=== PATIENT | male | born 1975 | race Hispanic/Latino ===

== ENCOUNTER 2018-12-22 13:18 | Inpatient (IN) | payer BC ==
[2018-12-22] MEDS ORDERED: Sodium Chloride 0.9% 1,000 ML IV ONE ×2 (13:34→15:45)
[2018-12-22 13:35] VITALS: BMI 28.8
--- NOTE | 2018-12-22 13:40 | C.PDOC ---
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 Remembers falling. No chest pain, sob., visual changes or weakness. Speaking in complete sentences Time Seen by Provider: 12/22/18 13:25 Chief Complaint (Nursing): Syncope History Per: Patient History/Exam Limitations: no limitations Onset/Duration Of Symptoms: Hrs Current Symptoms Are (Timing): Still Present Number Of Syncopal Episodes: >3 Activity At Onset Of Symptoms: Standing Associated Symptoms Preceding Syncopal Episode: Lightheadedness Seizure Or Post-ictal Symptoms: None Possible Causative Factor(s): Diurectics Fall Associated With With Symptoms: Yes Severity: Severe Pain Scale Rating Of: 9 Recent travel outside of the [place]: No Additional History Per: Patient - Symptoms Of CVA Associated Symptoms: denies: Impaired Speech, Seizure Activity Recent Aspirin Use: No Current Coumadin Use?: No Recent Head Trauma: No Past Medical History Reviewed: Historical Data, Nursing Documentation, Vital Signs Vital Signs: Last Vital Signs Temp Pulse 37 L 12/22/18 13:30 Resp 20 12/22/18 13:30 BP 98/60 L 12/22/18 13:30 Pulse Ox 99 12/22/18 13:30 Primary Care Provider: Non [facility] Provider, - Medical History PMH: HTN Family History: States: No Known Family Hx - Social History Hx Alcohol Use: Yes Hx Substance Use: No - Immunization History Hx Tetanus Toxoid Vaccination: No Hx Influenza Vaccination: No Hx Pneumococcal Vaccination: No Review Of Systems Constitutional: Negative for: Fever, Chills Eyes: Negative for: Vision Change Cardiovascular: Positive for: Palpitations. Negative for: Chest Pain Respiratory: Negative for: Shortness of Breath Gastrointestinal: Negative for: Nausea, Vomiting Genitourinary: Negative for: Dysuria Musculoskeletal: Negative for: Back Pain Skin: Negative for: Rash Neurological: Negative for: Weakness Psych: Negative for: Anxiety Physical Exam - Physical Exam Appears: In Acute Distress Skin: Diaphoretic, Pale, Other (small abrassion1 cm, temporo occipital area) Head: Normacephalic Eye(s): bilateral: Normal Inspection Oral Mucosa: Moist Tongue: Normal Appearing Lips: Normal Appearing Throat: No Erythema Neck: Supple Chest: Symmetrical Cardiovascular: Rhythm Irregular Respiratory: No Rales, No Rhonchi, No Wheezing Gastrointestinal/Abdominal: Soft, No Tenderness Back: No CVA Tenderness Extremity: Normal ROM Extremity: Bilateral: Atraumatic Pulses: Left Dorsalis Pedis: Normal, Right Dorsalis Pedis: Normal Neurological/Psych: Oriented x3 Gait: Unsteady ED Course And Treatment - Laboratory Results Result Diagrams: 12/22/18 13:44 ECG: Interpreted By Me, Viewed By Me ECG Rhythm: Sinus Rhythm (59), 2nd Degree HB Mobitz II, R BBB, Nonspecific Changes O2 Sat by Pulse Oximetry: 99 Pulse Ox Interpretation: Normal Critical Care Time - Critical Care Note Total Time (in mins): 30 Documented critical care: time excludes all time spent performing seperately bi llable procedures. Disposition Counseled Patient/Family Regarding: Studies Performed, Diagnosis - Disposition Disposition Time: 13:38 Condition: GUARDED Forms: [facility] (Urdu) - Clinical Impression Clinical Impression: Syncope, Second degree heart block Physician Patient Turnover Patient Signed Over To: Renuka Gutierrez Handoff Comments: pending labs, re-eval and admission
[2018-12-22 13:51] LABS: BASO % 0.4 % (0.0-2.0); EOS # 0.1 K/uL (0.0-0.7); EOS % 0.5 % (0.0-4.0); HEMOGLOBIN 14.4 g/dL (12.0-18.0); LYMPH # 1.1 K/uL (1.0-4.3); LYMPH % 10.8 % (20.0-40.0); MEAN CELL VOLUME 85.1 fL (80.0-94.0); MEAN CORPUSCULAR HEMOGLOBIN 30.4 pg (27.0-31.0); MEAN CORPUSCULAR HGB CONC 35.7 g/dL (33.0-37.0); MEAN PLATELET VOLUME 8.2 fL (7.2-11.7); MONO # 0.6 K/uL (0.0-0.8); MONO % 6.1 % (0.0-10.0); NEUT # 8.5 K/uL (1.8-7.0); NEUT % 82.2 % (50.0-75.0); RBC 4.75 Mil/uL (4.40-5.90); RED CELL DISTRIBUTION WIDTH 13.1 % (11.5-14.5); WHITE BLOOD COUNT 10.4 K/uL (4.8-10.8)
[2018-12-22 13:59] LABS: INR 1.2; PROTHROMBIN TIME 13.5 SECONDS (9.7-12.2)
[2018-12-22 14:10] LABS: ALB/GLOB RATIO 1.6 (1.0-2.1); ALBUMIN 4.8 g/dL (3.5-5.0); ALT/SGPT 40 U/L (21-72); AST/SGOT 41 U/L (17-59); BLOOD UREA NITROGEN 19 mg/dL (9-20); CALCIUM 10.1 mg/dl (8.6-10.4); GFR NON-AFRICAN AMERICAN > 60
[2018-12-22 14:16] LABS: B-TYPE NATRIURETIC PEPTIDE 286 pg/mL (0-450)
[2018-12-22] MEDS ORDERED: Potassium Chloride 20 mEq ER Tab PO STA (14:28)
[2018-12-22] MEDS ORDERED: Atropine Sulfate 1 mg/ml Vial (1 ml) IVP ONE (14:32)
--- NOTE | 2018-12-22 15:04 | CP.PCM.CON ---
<Niels Antony - Last Filed: 12/22/18 17:38> History of Present Illness - History of Present Illness History of Present Illness: PGY-1 Critical Care Consult Note for Dr. Pritchard Reason for Consult: 3rd degree heart block Patient is a 43 year old male with pmhx of HTN and history of colon cancer who presented to the ED with acute onset lightheadedness, dizziness, syncope. 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 He woke up on the floor then and passed out a second time. He then woke up with bystanders surrounding him. Does not recall length of LOC. Patient continued to complain of dizziness in the ED and presented with abrasion to scalp. Per EM report, pt was received cold and clammy. ED noted patient to be in 3rd degree heart block. Vitals remained stable, patient was alert and oriented x 3. Atropine x 1 was given in the ED. EPS (Dr. Awan) was contacted, who is away for cases at [facility] until late this evening. Patient was transported to ICU where RIJ transcutaneous pacer was placed. After placing a 5 upper sorbian sheath, we were unable to find a cover sheath. Patient's heart stopped during this search process. Cardiac thump was performed by intensivitst and patient regained his sinus rhythm, which was conducting to the ventricle. When sheath was placed, patient was regowned and pacing wire was floated in. After 15 cm of insertion, balloon was inflated and advanced to 35 cm, upon which pacing capture and HR increased to 100. Patient's HR improved. CXR was obtained and wire was noted to be in place with no pneumothorax. EPS was notified again, made aware of intervention and patient updates. Stated he will come in the AM to evaluate patient for PPM placement. Patient resting comfortably, in no acute distress. Vitals stable. He denies any current headaches, dizziness, chest pain, palpitations, sob, cough, abdominal pain, n/v/d/c, dysuria, or changes in stool. 12 pt ROS reviewed and otherwise negative. PMHx: HTN, hx of colon cancer PSHx: "colon surgery" Allergies: NKDA Home Meds: reviewed Family Hx: unknown Social Hx: social drinker, denies tobacco or illicit drug use Review of Systems - Review of Systems All systems: reviewed and no additional remarkable complaints except Review of Systems: as per HPI Past Patient History - Past Social History Smoking Status: Never Smoked - CARDIAC Hx Hypertension: Yes - HEMATOLOGICAL/ONCOLOGICAL Hx Cancer: Yes (in past, colon ca) - PSYCHIATRIC Hx Substance Use: No - SURGICAL HISTORY Other/Comment: colon Meds Allergies/Adverse Reactions: Allergies Allergy/AdvReac Type Severity Reaction Status Date / Time No Known Allergies Allergy Verified 12/22/18 13:35 - Medications Medications: Current Medications Potassium Chloride (Potassium Chloride 20 Meq/100 Ml) 20 meq in 100 mls @ 50 mls/hr IVPB ONCE ONE Stop: 12/22/18 16:30 Last Admin: 12/22/18 14:53 Dose: 50 mls/hr Physical Exam - Constitutional Appears: Non-toxic, No Acute Distress - Head Exam Head Exam: ATRAUMATIC, NORMAL INSPECTION, NORMOCEPHALIC - Eye Exam Eye Exam: EOMI, Normal appearance, PERRL Pupil Exam: NORMAL ACCOMODATION - ENT Exam ENT Exam: Mucous Membranes Moist, Normal Exam - Neck Exam Neck exam: Positive for: Normal Inspection Additional comments: R IJ TCP inserted - Respiratory Exam Respiratory Exam: Clear to Auscultation Bilateral, NORMAL BREATHING PATTERN. absent: Accessory Muscle Use, Rales, Rhonchi, Wheezes, Respiratory Distress - Cardiovascular Exam Cardiovascular Exam: Irregular Rhythm, +S1, +S2 Additional comments: paced - GI/Abdominal Exam GI & Abdominal Exam: Normal Bowel Sounds, Soft. absent: Distended, Firm, Guarding, Rebound, Rigid, Tenderness - Extremities Exam Extremities exam: Positive for: normal capillary refill, normal inspection, pedal pulses present. Negative for: calf tenderness, pedal edema - Back Exam Back exam: NORMAL INSPECTION - Neurological Exam Neurological exam: Alert, Oriented x3 - Skin Skin Exam: Dry, Intact, Normal Color, Warm Results - Vital Signs Recent Vital Signs: Last Vital Signs Temp Pulse 47 L 12/22/18 14:51 Resp 18 12/22/18 14:51 BP 105/60 12/22/18 14:51 Pulse Ox 100 12/22/18 14:51 - Labs Result Diagrams: 12/22/18 13:44 12/22/18 13:44 Labs: Laboratory Results - last 24 hr 12/22/18 12/22/18 12/22/18 13:28 13:44 13:44 WBC 10.4 RBC 4.75 Hgb 14.4 Hct 40.4 MCV 85.1 MCH 30.4 MCHC 35.7 RDW 13.1 Plt Count 285 MPV 8.2 Neut % (Auto) 82.2 H Lymph % (Auto) 10.8 L [place] % (Auto) 6.1 Eos % (Auto) 0.5 Baso % (Auto) 0.4 Neut # (Auto) 8.5 H Lymph # (Auto) 1.1 C[place] # (Auto) 0.6 Eos # (Auto) 0.1 Baso # (Auto) 0.0 PT 13.5 H INR 1.2 APTT 32.0 Sodium Potassium Chloride Carbon Dioxide Anion Gap BUN Creatinine Est GFR ( Amer) Est GFR (Non-Af Amer) POC Glucose (mg/dL) 132 H Random Glucose Calcium Total Bilirubin AST ALT Alkaline Phosphatase Troponin I NT-Pro-B Natriuret Pep Total Protein Albumin Globulin Albumin/Globulin Ratio TSH 3rd Generation 12/22/18 13:44 WBC RBC Hgb Hct MCV MCH MCHC RDW Plt Count MPV Neut % (Auto) Lymph % (Auto) Cid[place] % (Auto) Eos % (Auto) Baso % (Auto) Neut # (Auto) Lymph # (Auto) C[place] # (Auto) Eos # (Auto) Baso # (Auto) PT INR APTT Sodium 141 Potassium 3.0 L Chloride 101 Carbon Dioxide 26 Anion Gap 18 BUN 19 Creatinine 1.3 Est GFR ( Amer) > 60 Est GFR (Non-Af Amer) > 60 POC Glucose (mg/dL) Random Glucose 132 H Calcium 10.1 Total Bilirubin 0.6 AST 41 ALT 40 Alkaline Phosphatase 72 Troponin I 0.0210 NT-Pro-B Natriuret Pep 286 Total Protein 7.9 Albumin 4.8 Globulin 3.0 Albumin/Globulin Ratio 1.6 TSH 3rd Generation 2.06 Assessment & Plan - Assessment and Plan (Free Text) Plan: 2nd degree heart block Hypotension -EKG: Sinus rhythm with 2nd degree AV block (Mobitz II) with ventricular escape complexes, RBBB, HR 53 bpm -R IJ TCP inserted -EPS (Dr. Costa) on case -NPO after MN for PPM tomorrow AM -on pressors, dopamine gtt -NS fluids @ 75 cc/hr Syncope, Fall CXR: Borderline cardiomegaly. Mild venous congestion, bilateral hilar prominence. CT head: no acute findings Hypokalemia -K 3.0 -K repleted, continue to monitor Case discussed with Dr. Macho Antony DO, PGY-1 <Nicolas Pritchard - Last Filed: 12/23/18 09:45> Meds - Medications Medications: Current Medications Dopamine HCl/Dextrose (Dopamine 400mg/250ml D5w) 400 mg in 250 mls @ 6.464 mls/hr IV .Q24H PRN; Protocol PRN Reason: TITRATE PER MD ORDER Last Titration: 12/22/18 18:00 Dose: 3 mcg/kg/min, 9.696 mls/hr Sodium Chloride (Sodium Chloride 0.9%) 1,000 mls @ 75 mls/hr IV .[id number] LESLEY Last Admin: 12/22/18 18:06 Dose: 75 mls/hr Vancomycin/Sodium Chloride (Vancomycin 1 Gm/Ns 200 Ml) 1 gm in 200 mls @ 133 mls/hr IVPB Q24H LESLEY; Protocol Stop: 12/27/18 20:01 Last Admin: 12/22/18 21:28 Dose: 133 mls/hr Gentamicin Sulfate/Sodium Chloride (Gentamicin 80mg/100ml Ns) 80 mg in 100 mls @ 200 mls/hr IVPB ONCE ONE; Protocol Stop: 12/23/18 10:29 Results - Vital Signs Recent Vital Signs: Last Vital Signs Temp 99 F 12/23/18 08:00 Pulse 88 12/23/18 09:02 Resp 19 12/23/18 09:02 BP 114/68 12/23/18 09:02 Pulse Ox 99 12/23/18 08:02 - Labs Result Diagrams: 12/23/18 06:31 12/23/18 04:00 Labs: Laboratory Results - last 24 hr 12/22/18 12/22/18 12/22/18 13:28 13:44 13:44 WBC 10.4 RBC 4.75 Hgb 14.4 Hct 40.4 MCV 85.1 MCH 30.4 MCHC 35.7 RDW 13.1 Plt Count 285 MPV 8.2 Neut % (Auto) 82.2 H Lymph % (Auto) 10.8 L [place] % (Auto) 6.1 Eos % (Auto) 0.5 Baso % (Auto) 0.4 Neut # (Auto) 8.5 H Lymph # (Auto) 1.1 C[place] # (Auto) 0.6 Eos # (Auto) 0.1 Baso # (Auto) 0.0 PT 13.5 H INR 1.2 APTT 32.0 D-Dimer, Quantitative Sodium Potassium Chloride Carbon Dioxide Anion Gap BUN Creatinine Est GFR ( Amer) Est GFR (Non-Af Amer) POC Glucose (mg/dL) 132 H Random Glucose Calcium Total Bilirubin AST ALT Alkaline Phosphatase Troponin I NT-Pro-B Natriuret Pep Total Protein Albumin Globulin Albumin/Globulin Ratio TSH 3rd Generation Urine Color Urine Clarity Urine pH Ur Specific Stark Urine Protein Urine Glucose (UA) Urine Ketones Urine Blood Urine Nitrate Urine Bilirubin Urine Urobilinogen Ur Leukocyte Esterase Urine WBC (Auto) Urine RBC (Auto) Hyaline Casts Urine Opiates Screen Urine Methadone Screen Ur Barbiturates Screen Ur Phencyclidine Scrn Ur Amphetamines Screen U Benzodiazepines Scrn U Oth Cocaine Metabols U Cannabinoids Screen Alcohol, Quantitative RPR 12/22/18 12/22/18 12/22/18 13:44 13:53 14:52 WBC RBC Hgb Hct MCV MCH MCHC RDW Plt Count MPV Neut % (Auto) Lymph % (Auto) [place] % (Auto) Eos % (Auto) Baso % (Auto) Neut # (Auto) Lymph # (Auto) [place] # (Auto) Eos # (Auto) Baso # (Auto) PT INR APTT D-Dimer, Quantitative 414 H Sodium 141 Potassium 3.0 L Chloride 101 Carbon Dioxide 26 Anion Gap 18 BUN 19 Creatinine 1.3 Est GFR ( Amer) > 60 Est GFR (Non-Af Amer) > 60 POC Glucose (mg/dL) Random Glucose 132 H Calcium 10.1 Total Bilirubin 0.6 AST 41 ALT 40 Alkaline Phosphatase 72 Troponin I 0.0210 NT-Pro-B Natriuret Pep 286 Total Protein 7.9 Albumin 4.8 Globulin 3.0 Albumin/Globulin Ratio 1.6 TSH 3rd Generation 2.06 Urine Color Urine Clarity Urine pH Ur Specific Stark Urine Protein Urine Glucose (UA) Urine Ketones Urine Blood Urine Nitrate Urine Bilirubin Urine Urobilinogen Ur Leukocyte Esterase Urine WBC (Auto) Urine RBC (Auto) Hyaline Casts Urine Opiates Screen Urine Methadone Screen Ur Barbiturates Screen Ur Phencyclidine Scrn Ur Amphetamines Screen U Benzodiazepines Scrn U Oth Cocaine Metabols U Cannabinoids Screen Alcohol, Quantitative RPR Nonreactive 12/22/18 12/22/18 12/23/18 19:17 19:17 04:00 WBC RBC Hgb Hct MCV MCH MCHC RDW Plt Count MPV Neut % (Auto) Lymph % (Auto) [place] % (Auto) Eos % (Auto) Baso % (Auto) Neut # (Auto) Lymph # (Auto) [place] # (Auto) Eos # (Auto) Baso # (Auto) PT INR APTT D-Dimer, Quantitative Sodium 141 Potassium 4.0 Chloride 104 Carbon Dioxide 27 Anion Gap 13 BUN 18 Creatinine 1.0 Est GFR ( Amer) > 60 Est GFR (Non-Af Amer) > 60 POC Glucose (mg/dL) Random Glucose 110 Calcium 8.8 Total Bilirubin AST ALT Alkaline Phosphatase Troponin I NT-Pro-B Natriuret Pep Total Protein Albumin Globulin Albumin/Globulin Ratio TSH 3rd Generation Urine Color Yellow Urine Clarity Clear Urine pH 6.0 Ur Specific Stark 1.012 Urine Protein Negative Urine Glucose (UA) Normal Urine Ketones Trace Urine Blood Negative Urine Nitrate Negative Urine Bilirubin Negative Urine Urobilinogen Normal Ur Leukocyte Esterase Neg Urine WBC (Auto) 1 Urine RBC (Auto) < 1 Hyaline Casts 3-5 H Urine Opiates Screen Negative Urine Methadone Screen Negative Ur Barbiturates Screen Negative Ur Phencyclidine Scrn Negative Ur Amphetamines Screen Negative U Benzodiazepines Scrn Negative U Oth Cocaine Metabols Negative U Cannabinoids Screen Negative Alcohol, Quantitative < 10 RPR 12/23/18 06:31 WBC 11.3 H RBC 4.82 Hgb 14.3 Hct 41.7 MCV 86.6 MCH 29.6 MCHC 34.2 RDW 13.1 Plt Count 244 MPV 8.2 Neut % (Auto) 83.9 H Lymph % (Auto) 9.4 L [place] % (Auto) 6.5 Eos % (Auto) 0.0 Baso % (Auto) 0.2 Neut # (Auto) 9.5 H Lymph # (Auto) 1.1 [place] # (Auto) 0.7 Eos # (Auto) 0.0 Baso # (Auto) 0.0 PT INR APTT D-Dimer, Quantitative Sodium Potassium Chloride Carbon Dioxide Anion Gap BUN Creatinine Est GFR ( Amer) Est GFR (Non-Af Amer) POC Glucose (mg/dL) Random Glucose Calcium Total Bilirubin AST ALT Alkaline Phosphatase Troponin I NT-Pro-B Natriuret Pep Total Protein Albumin Globulin Albumin/Globulin Ratio TSH 3rd Generation Urine Color Urine Clarity Urine pH Ur Specific Stark Urine Protein Urine Glucose (UA) Urine Ketones Urine Blood Urine Nitrate Urine Bilirubin Urine Urobilinogen Ur Leukocyte Esterase Urine WBC (Auto) Urine RBC (Auto) Hyaline Casts Urine Opiates Screen Urine Methadone Screen Ur Barbiturates Screen Ur Phencyclidine Scrn Ur Amphetamines Screen U Benzodiazepines Scrn U Oth Cocaine Metabols U Cannabinoids Screen Alcohol, Quantitative RPR Assessment & Plan - Assessment and Plan (Free Text) Plan: Patient seen and examined at bedside. Patient had 2 episodes of ventricular pause lasting more than 5 seconds (first in ER, 2nd during sheath searching) -EPS consulted (for PPM placement) -dopamin IV infusion by RN and atropine pushed by myself -TCPPM placed -Patient remains hemodynamically stable. cc time 65 minutes excluding any time spent on procedures - Date & Time Date: 12/22/18 Time: 19:00
[2018-12-22] MEDS ORDERED: DOPamine 400mg/250ml D5W 400 MG/250 ML BAG IV PRN (15:22)
--- NOTE | 2018-12-22 15:29 | RAD ---
HISTORY: chest pain COMPARISON: None available. TECHNIQUE: Chest, one view. FINDINGS: Examination limited by habitus. 2 left sided external defibrillator pads LUNGS: Mild venous congestion. Bilateral hilar prominence. No focal consolidation. Please note that chest x-ray has limited sensitivity for the detection of pulmonary masses. PLEURA: No significant pleural effusion identified. No definite pneumothorax . CARDIOVASCULAR: Borderline cardiomegaly. OSSEOUS STRUCTURES: No acute osseous abnormality identified. VISUALIZED UPPER ABDOMEN: Unremarkable. OTHER FINDINGS: None. IMPRESSION: Two left sided external defibrillator pads. Borderline cardiomegaly. Mild venous congestion. Bilateral hilar prominence.
--- NOTE | 2018-12-22 15:59 | CT ---
Date of service: 12/22/2018 PROCEDURE: CT HEAD WITHOUT CONTRAST. HISTORY: syncope COMPARISON: None available. TECHNIQUE: Axial computed tomography images were obtained through the head/brain without intravenous contrast. Radiation dose: Total exam DLP = 1192.46 mGy-cm. This CT exam was performed using one or more of the following dose reduction techniques: Automated exposure control, adjustment of the mA and/or kV according to patient size, and/or use of iterative reconstruction technique. FINDINGS: HEMORRHAGE: No intracranial hemorrhage. BRAIN: No mass effect or edema. No atrophy or chronic microvascular ischemic changes.Please note that MRI with diffusion imaging is more sensitive in the detection of acute ischemic event. VENTRICLES: No hydrocephalus. CALVARIUM: Unremarkable. PARANASAL SINUSES: Unremarkable as visualized. No significant inflammatory changes. MASTOID AIR CELLS: Unremarkable as visualized. No inflammatory changes. OTHER FINDINGS: None. IMPRESSION: No acute intracranial pathology identified.
--- NOTE | 2018-12-22 16:30 | CP.PCM.PCO ---
Physician Communication Note - Physician Communication Note Physician Communication Note: see above
--- NOTE | 2018-12-22 17:00 | RAD ---
HISTORY: s/p pacer cath COMPARISON: Chest x-ray performed 12/22/18 TECHNIQUE: Chest, one view. FINDINGS: Examination limited by habitus and hypoinflation. Right IJ approach catheter/wire extends from the level of the SVC crossing midline projecting at the level of the right ventricle; exact location uncertain in the absence of orthogonal view. 2 external defibrillator pads project over the chest/upper abdomen. There are multiple overlying wires and leads projecting over the chest, limiting evaluation of the underlying parenchyma. LUNGS: Mild venous congestion. PLEURA: No significant pleural effusion identified. No definite pneumothorax . CARDIOVASCULAR: Borderline cardiomegaly. Aortic ectasia. Atherosclerotic calcifications present. OSSEOUS STRUCTURES: Degenerative changes. VISUALIZED UPPER ABDOMEN: Unremarkable. OTHER FINDINGS: None. IMPRESSION: Right IJ approach catheter/wire extends from the level of the SVC crossing midline projecting at the level of the right ventricle; exact location uncertain in the absence of orthogonal view. Correlate clinically.
[2018-12-22] MEDS: Magnesium Sulfate 1 gm in D5W 1 GM/100 ML BAG IVPB SCH ×2 (17:10→17:40)
--- NOTE | 2018-12-22 17:34 | PCM.PROC ---
Procedures Attestation:: I certify that I have explained the specified Operation(s) or Procedure(s), risks, benefits and reasonable alternatives to the Patient and/or other person responsible. The opportunity was given to ask questions and all questions answered - Central Line Placement Right Internal Jugular Hemodialysis Access Aseptic technique was employed throughout the procedure: Full sterile barriers (mask, hair cover, sterile gown, sterile gloves), Full body sterile drape, Chloraprep Antiseptic: 30 second prep for IJ or SC sites, Chloraprep Antiseptic: 2 minute prep for Femoral CVP Time Out Performed: Yes Pt. Placed on Pulse Ox Monitor: Yes Central Line Prep: Chlorhexidine-Alcohol Combination Local Anesthesia Used: Lidocaine 1% Amount of Anesthesia Used (mls): 9 Ultrasound Used for Placement: Yes Central Line Lumen Inserted: single Central Line Length: 20 cm Post Procedure: Sutured in Place, Good Blood Return, All Ports Aspirated, Flushed, Capped, Sterile Dressing Applied Secured by: Suture Post procedure dressing: Gauze, Clear vapor permeable, Chlorhexidine disc (Biopatch) Post Procedure X-Ray: Yes Immediate Complications: None
[2018-12-22] MEDS: Sodium Chloride 0.9% 1,000 ML IV SCH (18:06)
[2018-12-22 19:38] LABS: BARBITURATES, UR NEGATIVE (NEGATIVE); BENZODIAZEPINES, UR NEGATIVE (NEGATIVE); OPIATES, UR NEGATIVE (NEGATIVE); PHENCYCLIDINE, UR NEGATIVE (NEGATIVE)
[2018-12-22 19:52] LABS: URINE BILIRUBIN NEGATIVE (NEGATIVE); URINE BLOOD NEGATIVE (NEGATIVE); URINE CLARITY Clear (Clear); URINE COLOR Yellow (YELLOW); URINE GLUCOSE (UA) NORMAL (Normal); URINE LEUKOCYTE ESTERASE NEG Leu/uL (Negative); URINE PROTEIN NEGATIVE (NEGATIVE); URINE UROBILINOGEN NORMAL mg/dL (0.2-1.0)
[2018-12-22] MEDS ORDERED: Vancomycin 1 gm/NS 200 ml 1 GM/200 ML BAG IVPB SCH (20:00)
--- NOTE | 2018-12-22 21:41 | CP.PCM.CON ---
History of Present Illness - History of Present Illness History of Present Illness: Reason for Consult: 3rd degree heart block Patient is a 43 year old male with pmhx of HTN and history of colon cancer who presented to the ED with acute onset lightheadedness, dizziness, syncope. 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 He woke up on the floor then and passed out a second time. He then woke up with bystanders surrounding him. Does not recall length of LOC. Patient continued to complain of dizziness in the ED and presented with abrasion to scalp. Per EM report, pt was received cold and clammy. ED noted patient to be in 3rd degree heart block. Vitals remained stable, patient was alert and oriented x 3. Atropine x 1 was given in the ED. EPS (Dr. Awan) was contacted, who is away for cases at [facility] until late this evening. Patient was transported to ICU where RIJ transcutaneous pacer was placed. After placing a 5 cameroonian sheath, we were unable to find a cover sheath. Patient's heart stopped during this search process. Cardiac thump was performed by intensivitst and patient regained his sinus rhythm, which was conducting to the ventricle. When sheath was placed, patient was regowned and pacing wire was floated in. After 15 cm of insertion, balloon was inflated and advanced to 35 cm, upon which pacing capture and HR increased to 100. Patient's HR improved. CXR was obtained and wire was noted to be in place with no pneumothorax. EPS was notified again, made aware of intervention and patient updates. Stated he will come in the AM to evaluate patient for PPM placement. Patient resting comfortably, in no acute distress. Vitals stable. He denies any current headaches, dizziness, chest pain, palpitations, sob, cough, abdominal pa in, n/v/d/c, dysuria, or changes in stool. 12 pt ROS reviewed and otherwise negative. PMHx: HTN, hx of colon cancer PSHx: "colon surgery" Allergies: NKDA Home Meds: reviewed Family Hx: unknown Social Hx: social drinker, denies tobacco or illicit drug use Review of Systems - Review of Systems All systems: reviewed and no additional remarkable complaints except Review of Systems: as per HPI Past Patient History - Past Social History Smoking Status: Never Smoked - CARDIAC Hx Hypertension: Yes - HEMATOLOGICAL/ONCOLOGICAL Hx Cancer: Yes (in past, colon ca) - PSYCHIATRIC Hx Substance Use: No - SURGICAL HISTORY Other/Comment: colon Meds Allergies/Adverse Reactions: Allergies Allergy/AdvReac Type Severity Reaction Status Date / Time No Known Allergies Allergy Verified 12/22/18 13:35 - Medications Medications: Current Medications Potassium Chloride (Potassium Chloride 20 Meq/100 Ml) 20 meq in 100 mls @ 50 mls/hr IVPB ONCE ONE Stop: 12/22/18 16:30 Last Admin: 12/22/18 14:53 Dose: 50 mls/hr Physical Exam - Constitutional Appears: Non-toxic, No Acute Distress - Head Exam Head Exam: ATRAUMATIC, NORMAL INSPECTION, NORMOCEPHALIC - Eye Exam Eye Exam: EOMI, Normal appearance, PERRL Pupil Exam: NORMAL ACCOMODATION - ENT Exam ENT Exam: Mucous Membranes Moist, Normal Exam - Neck Exam Neck exam: Positive for: Normal Inspection Additional comments: R IJ TCP inserted - Respiratory Exam Respiratory Exam: Clear to Auscultation Bilateral, NORMAL BREATHING PATTERN. absent: Accessory Muscle Use, Rales, Rhonchi, Wheezes, Respiratory Distress - Cardiovascular Exam Cardiovascular Exam: Irregular Rhythm, +S1, +S2 Additional comments: paced - GI/Abdominal Exam GI & Abdominal Exam: Normal Bowel Sounds, Soft. absent: Distended, Firm, Guarding, Rebound, Rigid, Tenderness - Extremities Exam Extremities exam: Positive for: normal capillary refill, normal inspection, pedal pulses present. Negative for: calf tenderness, pedal edema - Back Exam Back exam: NORMAL INSPECTION - Neurological Exam Neurological exam: Alert, Oriented x3 - Skin Skin Exam: Dry, Intact, Normal Color, Warm Results - Vital Signs Recent Vital Signs: Last Vital Signs Temp Pulse 47 L 12/22/18 14:51 Resp 18 12/22/18 14:51 BP 105/60 12/22/18 14:51 Pulse Ox 100 12/22/18 14:51 - Labs Result Diagrams: 12/22/18 13:44 12/22/18 13:44 Labs: Laboratory Results - last 24 hr 12/22/18 12/22/18 12/22/18 13:28 13:44 13:44 WBC 10.4 RBC 4.75 Hgb 14.4 Hct 40.4 MCV 85.1 MCH 30.4 MCHC 35.7 RDW 13.1 Plt Count 285 MPV 8.2 Neut % (Auto) 82.2 H Lymph % (Auto) 10.8 L Graham % (Auto) 6.1 Eos % (Auto) 0.5 Baso % (Auto) 0.4 Neut # (Auto) 8.5 H Lymph # (Auto) 1.1 Graham # (Auto) 0.6 Eos # (Auto) 0.1 Baso # (Auto) 0.0 PT 13.5 H INR 1.2 APTT 32.0 Sodium Potassium Chloride Carbon Dioxide Anion Gap BUN Creatinine Est GFR ( Amer) Est GFR (Non-Af Amer) POC Glucose (mg/dL) 132 H Random Glucose Calcium Total Bilirubin AST ALT Alkaline Phosphatase Troponin I NT-Pro-B Natriuret Pep Total Protein Albumin Globulin Albumin/Globulin Ratio TSH 3rd Generation 12/22/18 13:44 WBC RBC Hgb Hct MCV MCH MCHC RDW Plt Count MPV Neut % (Auto) Lymph % (Auto) Graham % (Auto) Eos % (Auto) Baso % (Auto) Neut # (Auto) Lymph # (Auto) Graham # (Auto) Eos # (Auto) Baso # (Auto) PT INR APTT Sodium 141 Potassium 3.0 L Chloride 101 Carbon Dioxide 26 Anion Gap 18 BUN 19 Creatinine 1.3 Est GFR ( Amer) > 60 Est GFR (Non-Af Amer) > 60 POC Glucose (mg/dL) Random Glucose 132 H Calcium 10.1 Total Bilirubin 0.6 AST 41 ALT 40 Alkaline Phosphatase 72 Troponin I 0.0210 NT-Pro-B Natriuret Pep 286 Total Protein 7.9 Albumin 4.8 Globulin 3.0 Albumin/Globulin Ratio 1.6 TSH 3rd Generation 2.06 Assessment & Plan - Assessment and Plan (Free Text) Plan: 2nd degree heart block Hypotension -EKG: Sinus rhythm with 2nd degree AV block (Mobitz II) with ventricular escape complexes, RBBB, HR 53 bpm -R IJ TCP inserted -EPS (Dr. Costa) on case -NPO after MN for PPM tomorrow AM -on pressors, dopamine gtt -NS fluids @ 75 cc/hr Syncope, Fall CXR: Borderline cardiomegaly. Mild venous congestion, bilateral hilar prominence. CT head: no acute findings Hypokalemia -K 3.0 -K repleted, continue to monitor Past Patient History - Past Social History Smoking Status: Never Smoked - CARDIAC Hx Hypertension: Yes - HEMATOLOGICAL/ONCOLOGICAL Hx Cancer: Yes (in past, colon ca) - PSYCHIATRIC Hx Substance Use: No - SURGICAL HISTORY Other/Comment: colon Meds Allergies/Adverse Reactions: Allergies Allergy/AdvReac Type Severity Reaction Status Date / Time No Known Allergies Allergy Verified 12/22/18 13:35 - Medications Medications: Current Medications Dopamine HCl/Dextrose (Dopamine 400mg/250ml D5w) 400 mg in 250 mls @ 6.464 mls/hr IV .Q24H PRN; Protocol PRN Reason: TITRATE PER MD ORDER Last Titration: 12/22/18 18:00 Dose: 3 mcg/kg/min, 9.696 mls/hr Sodium Chloride (Sodium Chloride 0.9%) 1,000 mls @ 75 mls/hr IV .[id number] [facility] Last Admin: 12/22/18 18:06 Dose: 75 mls/hr Vancomycin/Sodium Chloride (Vancomycin 1 Gm/Ns 200 Ml) 1 gm in 200 mls @ 133 mls/hr IVPB Q24H [facility]; Protocol Stop: 12/27/18 20:01 Results - Vital Signs Recent Vital Signs: Last Vital Signs Temp 97.2 F L 12/22/18 20:00 Pulse 88 12/22/18 21:02 Resp 13 12/22/18 21:02 BP 96/60 L 12/22/18 21:02 Pulse Ox 97 12/22/18 21:02 - Labs Result Diagrams: 12/22/18 13:44 12/22/18 13:44 Labs: Laboratory Results - last 24 hr 12/22/18 12/22/18 12/22/18 13:28 13:44 13:44 WBC 10.4 RBC 4.75 Hgb 14.4 Hct 40.4 MCV 85.1 MCH 30.4 MCHC 35.7 RDW 13.1 Plt Count 285 MPV 8.2 Neut % (Auto) 82.2 H Lymph % (Auto) 10.8 L Graham % (Auto) 6.1 Eos % (Auto) 0.5 Baso % (Auto) 0.4 Neut # (Auto) 8.5 H Lymph # (Auto) 1.1 Graham # (Auto) 0.6 Eos # (Auto) 0.1 Baso # (Auto) 0.0 PT 13.5 H INR 1.2 APTT 32.0 D-Dimer, Quantitative Sodium Potassium Chloride Carbon Dioxide Anion Gap BUN Creatinine Est GFR ( Amer) Est GFR (Non-Af Amer) POC Glucose (mg/dL) 132 H Random Glucose Calcium Total Bilirubin AST ALT Alkaline Phosphatase Troponin I NT-Pro-B Natriuret Pep Total Protein Albumin Globulin Albumin/Globulin Ratio TSH 3rd Generation Urine Color Urine Clarity Urine pH Ur Specific Stewart Urine Protein Urine Glucose (UA) Urine Ketones Urine Blood Urine Nitrate Urine Bilirubin Urine Urobilinogen Ur Leukocyte Esterase Urine WBC (Auto) Urine RBC (Auto) Hyaline Casts Urine Opiates Screen Urine Methadone Screen Ur Barbiturates Screen Ur Phencyclidine Scrn Ur Amphetamines Screen U Benzodiazepines Scrn U Oth Cocaine Metabols U Cannabinoids Screen RPR 12/22/18 12/22/18 12/22/18 13:44 13:53 14:52 WBC RBC Hgb Hct MCV MCH MCHC RDW Plt Count MPV Neut % (Auto) Lymph % (Auto) Graham % (Auto) Eos % (Auto) Baso % (Auto) Neut # (Auto) Lymph # (Auto) Graham # (Auto) Eos # (Auto) Baso # (Auto) PT INR APTT D-Dimer, Quantitative 414 H Sodium 141 Potassium 3.0 L Chloride 101 Carbon Dioxide 26 Anion Gap 18 BUN 19 Creatinine 1.3 Est GFR ( Amer) > 60 Est GFR (Non-Af Amer) > 60 POC Glucose (mg/dL) Random Glucose 132 H Calcium 10.1 Total Bilirubin 0.6 AST 41 ALT 40 Alkaline Phosphatase 72 Troponin I 0.0210 NT-Pro-B Natriuret Pep 286 Total Protein 7.9 Albumin 4.8 Globulin 3.0 Albumin/Globulin Ratio 1.6 TSH 3rd Generation 2.06 Urine Color Urine Clarity Urine pH Ur Specific Stewart Urine Protein Urine Glucose (UA) Urine Ketones Urine Blood Urine Nitrate Urine Bilirubin Urine Urobilinogen Ur Leukocyte Esterase Urine WBC (Auto) Urine RBC (Auto) Hyaline Casts Urine Opiates Screen Urine Methadone Screen Ur Barbiturates Screen Ur Phencyclidine Scrn Ur Amphetamines Screen U Benzodiazepines Scrn U Oth Cocaine Metabols U Cannabinoids Screen RPR Nonreactive 12/22/18 12/22/18 19:17 19:17 WBC RBC Hgb Hct MCV MCH MCHC RDW Plt Count MPV Neut % (Auto) Lymph % (Auto) Graham % (Auto) Eos % (Auto) Baso % (Auto) Neut # (Auto) Lymph # (Auto) Graham # (Auto) Eos # (Auto) Baso # (Auto) PT INR APTT D-Dimer, Quantitative Sodium Potassium Chloride Carbon Dioxide Anion Gap BUN Creatinine Est GFR ( Amer) Est GFR (Non-Af Amer) POC Glucose (mg/dL) Random Glucose Calcium Total Bilirubin AST ALT Alkaline Phosphatase Troponin I NT-Pro-B Natriuret Pep Total Protein Albumin Globulin Albumin/Globulin Ratio TSH 3rd Generation Urine Color Yellow Urine Clarity Clear Urine pH 6.0 Ur Specific Stewart 1.012 Urine Protein Negative Urine Glucose (UA) Normal Urine Ketones Trace Urine Blood Negative Urine Nitrate Negative Urine Bilirubin Negative Urine Urobilinogen Normal Ur Leukocyte Esterase Neg Urine WBC (Auto) 1 Urine RBC (Auto) < 1 Hyaline Casts 3-5 H Urine Opiates Screen Negative Urine Methadone Screen Negative Ur Barbiturates Screen Negative Ur Phencyclidine Scrn Negative Ur Amphetamines Screen Negative U Benzodiazepines Scrn Negative U Oth Cocaine Metabols Negative U Cannabinoids Screen Negative RPR
[2018-12-23 06:36] LABS: BASO % 0.2 % (0.0-2.0); HEMOGLOBIN 14.3 g/dL (12.0-18.0); LYMPH # 1.1 K/uL (1.0-4.3); LYMPH % 9.4 % (20.0-40.0); MEAN CELL VOLUME 86.6 fL (80.0-94.0); MEAN CORPUSCULAR HEMOGLOBIN 29.6 pg (27.0-31.0); MEAN CORPUSCULAR HGB CONC 34.2 g/dL (33.0-37.0); MEAN PLATELET VOLUME 8.2 fL (7.2-11.7); MONO # 0.7 K/uL (0.0-0.8); MONO % 6.5 % (0.0-10.0); NEUT # 9.5 K/uL (1.8-7.0); NEUT % 83.9 % (50.0-75.0); PLATELET COUNT 244 K/uL (130-400); RBC 4.82 Mil/uL (4.40-5.90); RED CELL DISTRIBUTION WIDTH 13.1 % (11.5-14.5); WHITE BLOOD COUNT 11.3 K/uL (4.8-10.8)
[2018-12-23 06:53] LABS: BLOOD UREA NITROGEN 18 mg/dL (9-20); CALCIUM 8.8 mg/dl (8.6-10.4); GFR NON-AFRICAN AMERICAN > 60
[2018-12-23] MEDS ORDERED: Vancomycin 1 gm/NS 200 ml 1 GM/200 ML BAG IVPB ONE (08:15)
[2018-12-23] MEDS ORDERED: Lidocaine 2% MPF (5 ml) Inj ONE (09:31)
[2018-12-23 09:49] LABS: BANDS 1 % (0-2); LYMPHOCYTE 9 % (20-40); MONOCYTE 7 % (0-10); NEUTROPHIL 81 % (50-75); REACTIVE LYMPHOCYTES 2 % (0-0); TOTAL CELLS COUNTED 100
[2018-12-23 09:50] LABS: ANISOCYTOSIS SLIGHT; LARGE PLATELETS PRESENT; PLATELET ESTIMATE NORMAL (NORMAL)
[2018-12-23] MEDS ORDERED: Gentamicin 80 mg in 0.9% NS 80 MG/100 ML BAG IVPB ONE (10:00)
--- NOTE | 2018-12-23 10:02 | CP.PCM.HP ---
History of Present Illness - History of Present Illness History of Present Illness: Medicine Note for Dr. Johnston's Service This is a 43 year old male with PMHx of hypertension and colon cancer who presented to the ED with acute onset lightheadedness, dizziness, and syncope. Patient was symptomatic during work, he works in a warehouse. Bystanders noted his LOC and syncope and EMS was called. Patient found to be in 3rd degree heart block, transcutaneous pacer placed in ICU. Plan for PPM 12/23/18. PMHx: HTN, hx of colon cancer PSHx: "colon surgery" Allergies: NKDA Home Meds: reviewed Family Hx: unknown Social Hx: social drinker, denies tobacco or illicit drug use Present on Admission - Present on Admission Any Indicators Present on Admission: No Past Patient History - Past Medical History & Family History Past Medical History?: Yes - Past Social History Smoking Status: Never Smoked - CARDIAC Hx Hypertension: Yes - HEMATOLOGICAL/ONCOLOGICAL Hx Cancer: Yes (in past, colon ca) - MUSCULOSKELETAL/RHEUMATOLOGICAL Hx Falls: Yes - PSYCHIATRIC Hx Substance Use: No - SURGICAL HISTORY Other/Comment: colon Meds Allergies/Adverse Reactions: Allergies Allergy/AdvReac Type Severity Reaction Status Date / Time No Known Allergies Allergy Verified 12/22/18 13:35 Physical Exam - Constitutional Appears: No Acute Distress - Head Exam Head Exam: NORMAL INSPECTION, NORMOCEPHALIC - Eye Exam Eye Exam: EOMI, Normal appearance Pupil Exam: NORMAL ACCOMODATION - ENT Exam ENT Exam: Mucous Membranes Moist - Respiratory Exam Respiratory Exam: Clear to Auscultation Bilateral, NORMAL BREATHING PATTERN - Cardiovascular Exam Cardiovascular Exam: REGULAR RHYTHM - GI/Abdominal Exam GI & Abdominal Exam: Normal Bowel Sounds, Soft. absent: Distended, Tenderness - Extremities Exam Extremities exam: Positive for: normal inspection - Neurological Exam Neurological exam: Alert, CN II-XII Intact, Oriented x3 - Psychiatric Exam Psychiatric exam: Normal Affect, Normal Mood - Skin Skin Exam: Dry, Intact, Normal Color, Warm Results - Vital Signs Recent Vital Signs: Last Vital Signs Temp 99 F 12/23/18 08:00 Pulse 88 12/23/18 09:02 Resp 19 12/23/18 09:02 BP 114/68 12/23/18 09:02 Pulse Ox 99 12/23/18 08:02 - Labs Result Diagrams: 12/23/18 06:31 12/23/18 04:00 Labs: Laboratory Results - last 24 hr 12/22/18 12/22/18 12/22/18 13:28 13:44 13:44 WBC 10.4 RBC 4.75 Hgb 14.4 Hct 40.4 MCV 85.1 MCH 30.4 MCHC 35.7 RDW 13.1 Plt Count 285 MPV 8.2 Neut % (Auto) 82.2 H Lymph % (Auto) 10.8 L Benzie % (Auto) 6.1 Eos % (Auto) 0.5 Baso % (Auto) 0.4 Neut # (Auto) 8.5 H Lymph # (Auto) 1.1 Benzie # (Auto) 0.6 Eos # (Auto) 0.1 Baso # (Auto) 0.0 Neutrophils % (Manual) Band Neutrophils % Lymphocytes % (Manual) Reactive Lymphs % Monocytes % (Manual) Platelet Estimate Large Platelets Anisocytosis (manual) PT 13.5 H INR 1.2 APTT 32.0 D-Dimer, Quantitative Sodium Potassium Chloride Carbon Dioxide Anion Gap BUN Creatinine Est GFR ( Amer) Est GFR (Non-Af Amer) POC Glucose (mg/dL) 132 H Random Glucose Calcium Total Bilirubin AST ALT Alkaline Phosphatase Troponin I NT-Pro-B Natriuret Pep Total Protein Albumin Globulin Albumin/Globulin Ratio TSH 3rd Generation Urine Color Urine Clarity Urine pH Ur Specific Lambert Urine Protein Urine Glucose (UA) Urine Ketones Urine Blood Urine Nitrate Urine Bilirubin Urine Urobilinogen Ur Leukocyte Esterase Urine WBC (Auto) Urine RBC (Auto) Hyaline Casts Urine Opiates Screen Urine Methadone Screen Ur Barbiturates Screen Ur Phencyclidine Scrn Ur Amphetamines Screen U Benzodiazepines Scrn U Oth Cocaine Metabols U Cannabinoids Screen Alcohol, Quantitative RPR 12/22/18 12/22/18 12/22/18 13:44 13:53 14:52 WBC RBC Hgb Hct MCV MCH MCHC RDW Plt Count MPV Neut % (Auto) Lymph % (Auto) Benzie % (Auto) Eos % (Auto) Baso % (Auto) Neut # (Auto) Lymph # (Auto) Benzie # (Auto) Eos # (Auto) Baso # (Auto) Neutrophils % (Manual) Band Neutrophils % Lymphocytes % (Manual) Reactive Lymphs % Monocytes % (Manual) Platelet Estimate Large Platelets Anisocytosis (manual) PT INR APTT D-Dimer, Quantitative 414 H Sodium 141 Potassium 3.0 L Chloride 101 Carbon Dioxide 26 Anion Gap 18 BUN 19 Creatinine 1.3 Est GFR ( Amer) > 60 Est GFR (Non-Af Amer) > 60 POC Glucose (mg/dL) Random Glucose 132 H Calcium 10.1 Total Bilirubin 0.6 AST 41 ALT 40 Alkaline Phosphatase 72 Troponin I 0.0210 NT-Pro-B Natriuret Pep 286 Total Protein 7.9 Albumin 4.8 Globulin 3.0 Albumin/Globulin Ratio 1.6 TSH 3rd Generation 2.06 Urine Color Urine Clarity Urine pH Ur Specific Lambert Urine Protein Urine Glucose (UA) Urine Ketones Urine Blood Urine Nitrate Urine Bilirubin Urine Urobilinogen Ur Leukocyte Esterase Urine WBC (Auto) Urine RBC (Auto) Hyaline Casts Urine Opiates Screen Urine Methadone Screen Ur Barbiturates Screen Ur Phencyclidine Scrn Ur Amphetamines Screen U Benzodiazepines Scrn U Oth Cocaine Metabols U Cannabinoids Screen Alcohol, Quantitative RPR Nonreactive 12/22/18 12/22/18 12/23/18 19:17 19:17 04:00 WBC RBC Hgb Hct MCV MCH MCHC RDW Plt Count MPV Neut % (Auto) Lymph % (Auto) Benzie % (Auto) Eos % (Auto) Baso % (Auto) Neut # (Auto) Lymph # (Auto) Benzie # (Auto) Eos # (Auto) Baso # (Auto) Neutrophils % (Manual) Band Neutrophils % Lymphocytes % (Manual) Reactive Lymphs % Monocytes % (Manual) Platelet Estimate Large Platelets Anisocytosis (manual) PT INR APTT D-Dimer, Quantitative Sodium 141 Potassium 4.0 Chloride 104 Carbon Dioxide 27 Anion Gap 13 BUN 18 Creatinine 1.0 Est GFR ( Amer) > 60 Est GFR (Non-Af Amer) > 60 POC Glucose (mg/dL) Random Glucose 110 Calcium 8.8 Total Bilirubin AST ALT Alkaline Phosphatase Troponin I NT-Pro-B Natriuret Pep Total Protein Albumin Globulin Albumin/Globulin Ratio TSH 3rd Generation Urine Color Yellow Urine Clarity Clear Urine pH 6.0 Ur Specific Lambert 1.012 Urine Protein Negative Urine Glucose (UA) Normal Urine Ketones Trace Urine Blood Negative Urine Nitrate Negative Urine Bilirubin Negative Urine Urobilinogen Normal Ur Leukocyte Esterase Neg Urine WBC (Auto) 1 Urine RBC (Auto) < 1 Hyaline Casts 3-5 H Urine Opiates Screen Negative Urine Methadone Screen Negative Ur Barbiturates Screen Negative Ur Phencyclidine Scrn Negative Ur Amphetamines Screen Negative U Benzodiazepines Scrn Negative U Oth Cocaine Metabols Negative U Cannabinoids Screen Negative Alcohol, Quantitative < 10 RPR 12/23/18 06:31 WBC 11.3 H RBC 4.82 Hgb 14.3 Hct 41.7 MCV 86.6 MCH 29.6 MCHC 34.2 RDW 13.1 Plt Count 244 MPV 8.2 Neut % (Auto) 83.9 H Lymph % (Auto) 9.4 L Benzie % (Auto) 6.5 Eos % (Auto) 0.0 Baso % (Auto) 0.2 Neut # (Auto) 9.5 H Lymph # (Auto) 1.1 Benzie # (Auto) 0.7 Eos # (Auto) 0.0 Baso # (Auto) 0.0 Neutrophils % (Manual) 81 H Band Neutrophils % 1 Lymphocytes % (Manual) 9 L Reactive Lymphs % 2 H Monocytes % (Manual) 7 Platelet Estimate Normal Large Platelets Present Anisocytosis (manual) Slight PT INR APTT D-Dimer, Quantitative Sodium Potassium Chloride Carbon Dioxide Anion Gap BUN Creatinine Est GFR ( Amer) Est GFR (Non-Af Amer) POC Glucose (mg/dL) Random Glucose Calcium Total Bilirubin AST ALT Alkaline Phosphatase Troponin I NT-Pro-B Natriuret Pep Total Protein Albumin Globulin Albumin/Globulin Ratio TSH 3rd Generation Urine Color Urine Clarity Urine pH Ur Specific Lambert Urine Protein Urine Glucose (UA) Urine Ketones Urine Blood Urine Nitrate Urine Bilirubin Urine Urobilinogen Ur Leukocyte Esterase Urine WBC (Auto) Urine RBC (Auto) Hyaline Casts Urine Opiates Screen Urine Methadone Screen Ur Barbiturates Screen Ur Phencyclidine Scrn Ur Amphetamines Screen U Benzodiazepines Scrn U Oth Cocaine Metabols U Cannabinoids Screen Alcohol, Quantitative RPR Assessment & Plan - Assessment and Plan (Free Text) Plan: 2nd degree heart block Hypotension -EPS (Dr. Costa) on case -EKG: Sinus rhythm with 2nd degree AV block (Mobitz II) with ventricular escape complexes, RBBB, HR 53 bpm -R IJ TCP inserted -on pressors, dopamine gtt -NS fluids @ 75 cc/hr -NPO after MN for PPM today 12/23/18 Syncope, Fall Imaging: - CT head: no acute findings - CXR: Borderline cardiomegaly. Mild venous congestion, bilateral hilar prominence. Hypokalemia - Replete as needed DW Dr. Johnston, Lisy Gale DO, PGY2
--- NOTE | 2018-12-23 11:19 | CP.PCM.PN ---
Subjective - Date & Time of Evaluation Date of Evaluation: 12/23/18 Time of Evaluation: 14:33 - Subjective Subjective: Progress Note for Dr. Johnston Patient seen and examined at bedside after PPM placement by Dr. Mckeon earlier today. He states he has a history of hypertension for which he takes Lisinopril and HCTZ. He states he has never had similar episodes of lightheadedness, dizziness or syncope. 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 Patient had a belligerent episode last night in the ICU. He states he has never syncopal episodes prior to recent event which brought him to the hospital. He denies fevers, chills, headache, lightheadedness, dizziness, chest pain, abdominal pain, nausea, vomiting, diarrhea, constipation, leg pain. Objective - Vital Signs/Intake and Output Vital Signs (last 24 hours): Temp Pulse Resp BP Pulse Ox 99 F 88 19 114/68 99 12/23/18 08:00 12/23/18 09:02 12/23/18 09:02 12/23/18 09:02 12/23/18 08:02 Intake and Output: 12/23/18 12/23/18 06:59 18:59 Intake Total 1016.4 304.1 Output Total 375 300 Balance 641.4 4.1 - Medications Medications: Current Medications Enoxaparin Sodium (Lovenox) 40 mg SC DAILY [facility] Sodium Chloride (Sodium Chloride 0.9%) 1,000 mls @ 75 mls/hr IV .[id number] [facility] Last Admin: 12/22/18 18:06 Dose: 75 mls/hr Pantoprazole Sodium (Protonix Ec Tab) 40 mg PO DAILY [facility] - Labs Labs: 12/23/18 06:31 12/23/18 04:00 PT 13.5 SECONDS (9.7-12.2) H 12/22/18 13:44 INR 1.2 12/22/18 13:44 APTT 32.0 SECONDS (21-34) 12/22/18 13:44 - Constitutional Appears: Well, Non-toxic, No Acute Distress - Head Exam Head Exam: ATRAUMATIC, NORMOCEPHALIC - Eye Exam Eye Exam: EOMI, PERRL - ENT Exam ENT Exam: Mucous Membranes Moist - Neck Exam Neck Exam: Full ROM. absent: Tenderness - Respiratory Exam Respiratory Exam: Clear to Ausculation Bilateral, Rales, NORMAL BREATHING PATTERN. absent: Rhonchi, Wheezes, Respiratory Distress, Stridor - Cardiovascular Exam Cardiovascular Exam: +S1, +S2 Additional comments: PPM in place Paced rhythm in 60s - GI/Abdominal Exam GI & Abdominal Exam: Soft, Normal Bowel Sounds. absent: Guarding, Rigid, Tenderness - Extremities Exam Extremities Exam: absent: Calf Tenderness, Pedal Edema - Neurological Exam Neurological Exam: Alert, Awake, Oriented x3 - Psychiatric Exam Psychiatric exam: Normal Affect, Normal Mood - Skin Skin Exam: Dry, Intact, Warm Assessment and Plan - Assessment and Plan (Free Text) Assessment: 43 year old male with history of hypertension admitted for syncopal episode, found to be in third degree heart block, had PPM placement earlier today. Plan: Third degree heart block, improving EKG SR [place] A waves present on initial EKG Patient initially had Right IJ pacer placement in ICU on admission Patient had 2 episodes of ventricular pause - in the ED and during Right IJ pacer placement. Patient was hypotensive and received Dopamine on the day of admission Dr. cMkeon placed PPM today Currently paced on monitor with HR in 60s. TSH 2.06 RPR nonreactive Lyme titer, iron, studies, ferritin pending Follow up ECHO report Syncope, Fall CT head: no acute findings. CXR: borderline cardiomegaly, mild venous congestion, bilateral hilar prominence. History of hypertension On Lisinopril and HCTZ at home Hold given low BP History of colon cancer Status post colon surgery Patient will need to follow up with GI and Heme/Onc on discharge. Prophylaxis Lovenox 40mg SC daily Protonix 40mg PO daily Heart healthy diet Case discussed with Dr. Preston Le, PGY1
[2018-12-23] MEDS ORDERED: Midazolam 2 MG/2 ML VIAL ONE ×2 (11:56→12:01)
[2018-12-23] MEDS ORDERED: Iohexol 350mgl/ml 50 ML ONE (12:14)
[2018-12-23] MEDS ORDERED: ceFAZolin IV 1 gm in Dextrose 1 GM/50 ML BAG IVPB ONE (13:04)
[2018-12-23] MEDS: Pantoprazole 40 mg EC Tab PO SCH (13:19)
[2018-12-23] MEDS: Sodium Chloride 0.9% 1,000 ML IV SCH (13:23)
--- NOTE | 2018-12-23 16:32 | PCM.OP ---
Operative Report - Operative Report Date of Surgery/Procedure: 12/23/18 Time of Surgery/Procedure: 11:30 Surgeon: Lexx Mckeon MD Transitions Rn Care Coordinator: None Anesthesia/Sedation: Moderate sedation Pre-Operative Diagnosis: AV block and syncope Post-Operative Diagnosis: AV Block and syncope Indication for Surgery: Syncope Operative Findings: PSA as reported Procedure/Operation Description: Dual chamber pacemaker insertion via axillary vein Estimated Blood Loss: 30 cc Blood Replaced: None Complications: None Discharge & Condition: Stable
--- NOTE | 2018-12-23 16:42 | CP.PCM.CON ---
History of Present Illness - History of Present Illness History of Present Illness: Dr. Martins has asked me to see this patient with compete heart block This is a 43 yo man with a CV significant for HTN. At baseline he is in good health and has no limitation with exertion. 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 He reports he was standing and speaking to coworkers when he suddenly lost consciousness. No associated palpitations and no modifying factors. He has no history of prior dizziness or syncope. He was brought to the ER where he was found to be in CHB with a sinus rate of 100 and a slow ventricular escape. He continued to have symptoms with transient asystole and a TVP was placed in the ICU. Labs notable for a normal TSH and a normal troponin. I have reviewed the transthoracic echocardiogram. It shows no significant valvular disease. There is significant LVH with setpal hyperrophy below the LVOT. There are no RWMA. There is a suggestions of an ASD. PMHx: HTN, colon cancer s/p partial colectomy Allergies: NKDA Family Hx: No premature CAD or sudden Social Hx: social drinker, denies tobacco or illicit drug use Review of Systems - Constitutional Constitutional: absent: Chills, Fever - EENT Eyes: absent: Change in Vision Ears: absent: Decreased Hearing Nose/Mouth/Throat: absent: Epistaxis - Cardiovascular Cardiovascular: absent: Chest Pain, Claudication, Dyspnea on Exertion, Edema, Irregular Heart Rhythm - Respiratory Respiratory: absent: Cough, Dyspnea - Gastrointestinal Gastrointestinal: absent: Abdominal Pain, Change in Bowel Habits - Genitourinary Genitourinary: absent: Change in Urinary Stream - Musculoskeletal Musculoskeletal: absent: Abnormal Gait, Arthralgias - Integumentary Integumentary: absent: Acne, Alopecia, Bleeding Lesions - Neurological Neurological: absent: Confusion, Dizziness - Psychiatric Psychiatric: absent: Panic Attacks, Paranoia - Endocrine Endocrine: absent: Excessive Sweating, Palpitations - Hematologic/Lymphatic Hematologic: absent: Easy Bruising Past Patient History - Past Medical History & Family History Past Medical History?: Yes - Past Social History Smoking Status: Never Smoked - CARDIAC Hx Hypertension: Yes - HEMATOLOGICAL/ONCOLOGICAL Hx Cancer: Yes (in past, colon ca) - MUSCULOSKELETAL/RHEUMATOLOGICAL Hx Falls: Yes - PSYCHIATRIC Hx Substance Use: No - SURGICAL HISTORY Other/Comment: colon Meds Allergies/Adverse Reactions: Allergies Allergy/AdvReac Type Severity Reaction Status Date / Time No Known Allergies Allergy Verified 12/22/18 13:35 - Medications Medications: Current Medications Enoxaparin Sodium (Lovenox) 40 mg SC DAILY [facility] Sodium Chloride (Sodium Chloride 0.9%) 1,000 mls @ 75 mls/hr IV .[id number] [facility] Last Admin: 12/23/18 13:23 Dose: 75 mls/hr Pantoprazole Sodium (Protonix Ec Tab) 40 mg PO DAILY [facility] Last Admin: 12/23/18 13:19 Dose: 40 mg Physical Exam - Constitutional Appears: Non-toxic, Toxic - Head Exam Additional comments: ecchymosis on forehead - Eye Exam Eye Exam: EOMI, Normal appearance, PERRL Pupil Exam: NORMAL ACCOMODATION, PERRL - ENT Exam ENT Exam: Mucous Membranes Moist - Neck Exam Additional comments: R IJ - Respiratory Exam Respiratory Exam: Clear to Auscultation Bilateral - Cardiovascular Exam Cardiovascular Exam: REGULAR RHYTHM. absent: Systolic Murmur Additional comments: distant heart sounds - GI/Abdominal Exam GI & Abdominal Exam: Normal Bowel Sounds, Soft - Extremities Exam Extremities exam: Positive for: normal inspection - Neurological Exam Neurological exam: Alert Results - Vital Signs Recent Vital Signs: Last Vital Signs Temp 98 F 12/23/18 13:15 Pulse 66 12/23/18 15:30 Resp 17 12/23/18 15:30 BP 123/77 12/23/18 14:43 Pulse Ox 97 12/23/18 15:30 - Labs Result Diagrams: 12/23/18 06:31 12/23/18 04:00 Labs: Laboratory Results - last 24 hr 12/22/18 12/22/18 12/22/18 13:53 19:17 19:17 WBC RBC Hgb Hct MCV MCH MCHC RDW Plt Count MPV Neut % (Auto) Lymph % (Auto) [place] % (Auto) Eos % (Auto) Baso % (Auto) Neut # (Auto) Lymph # (Auto) [place] # (Auto) Eos # (Auto) Baso # (Auto) Neutrophils % (Manual) Band Neutrophils % Lymphocytes % (Manual) Reactive Lymphs % Monocytes % (Manual) Platelet Estimate Large Platelets Anisocytosis (manual) Sodium Potassium Chloride Carbon Dioxide Anion Gap BUN Creatinine Est GFR ( Amer) Est GFR (Non-Af Amer) Random Glucose Calcium Urine Color Yellow Urine Clarity Clear Urine pH 6.0 Ur Specific [place] 1.012 Urine Protein Negative Urine Glucose (UA) Normal Urine Ketones Trace Urine Blood Negative Urine Nitrate Negative Urine Bilirubin Negative Urine Urobilinogen Normal Ur Leukocyte Esterase Neg Urine WBC (Auto) 1 Urine RBC (Auto) < 1 Hyaline Casts 3-5 H Urine Opiates Screen Negative Urine Methadone Screen Negative Ur Barbiturates Screen Negative Ur Phencyclidine Scrn Negative Ur Amphetamines Screen Negative U Benzodiazepines Scrn Negative U Oth Cocaine Metabols Negative U Cannabinoids Screen Negative Alcohol, Quantitative RPR Nonreactive 12/23/18 12/23/18 04:00 06:31 WBC 11.3 H RBC 4.82 Hgb 14.3 Hct 41.7 MCV 86.6 MCH 29.6 MCHC 34.2 RDW 13.1 Plt Count 244 MPV 8.2 Neut % (Auto) 83.9 H Lymph % (Auto) 9.4 L [place] % (Auto) 6.5 Eos % (Auto) 0.0 Baso % (Auto) 0.2 Neut # (Auto) 9.5 H Lymph # (Auto) 1.1 [place] # (Auto) 0.7 Eos # (Auto) 0.0 Baso # (Auto) 0.0 Neutrophils % (Manual) 81 H Band Neutrophils % 1 Lymphocytes % (Manual) 9 L Reactive Lymphs % 2 H Monocytes % (Manual) 7 Platelet Estimate Normal Large Platelets Present Anisocytosis (manual) Slight Sodium 141 Potassium 4.0 Chloride 104 Carbon Dioxide 27 Anion Gap 13 BUN 18 Creatinine 1.0 Est GFR ( Amer) > 60 Est GFR (Non-Af Amer) > 60 Random Glucose 110 Calcium 8.8 Urine Color Urine Clarity Urine pH Ur Specific [place] Urine Protein Urine Glucose (UA) Urine Ketones Urine Blood Urine Nitrate Urine Bilirubin Urine Urobilinogen Ur Leukocyte Esterase Urine WBC (Auto) Urine RBC (Auto) Hyaline Casts Urine Opiates Screen Urine Methadone Screen Ur Barbiturates Screen Ur Phencyclidine Scrn Ur Amphetamines Screen U Benzodiazepines Scrn U Oth Cocaine Metabols U Cannabinoids Screen Alcohol, Quantitative < 10 RPR Assessment & Plan - Assessment and Plan (Free Text) Assessment: 43 yo man with history of HTN who has developed symptomatic paroxysmal AV block. His troponin is normal and there are no RWMA arguing against ischemia. He denies any activity that would put him at increased risk for lyme. He is clearly symptomatic. CHB: schedule urgent PPM ASD: Echo suggests ASD . Will need furhter evaluation with IVY> LVH: moderate to severe. Total protein and albumin are normal. Suggest aggresive BP management. HTN: continue regimen.
[2018-12-23] MEDS: Enoxaparin 40 mg Syringe SC SCH (18:28)
--- NOTE | 2018-12-23 22:01 | OP ---
PROCEDURE DATE: 12/23/2018 PREOPERATIVE DIAGNOSIS: Complete heart block. POSTOPERATIVE DIAGNOSIS: Complete heart block. PROCEDURE: Pacemaker insertion. SURGEON: Lexx Mckeon MD COMPLICATIONS: None. ESTIMATED BLOOD LOSS: 30 mL. ANESTHESIA: Monitored care. MEDIA TECHNICIAN: None. SPECIMENS: None. REFERRING PROVIDER: Pj Martins MD CLINICAL HISTORY: This is a very pleasant 43-year-old male with a cardiovascular history significant for hypertension. He is at baseline, he is in good health with no significant limitations with exertion. 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 He was brought into the ER where despite atropine, he continued to have complete heart block with an underlying sinus rate of 100 and slow ventricular escape. He had further symptoms in addition to transient asystole. was placed in the ICU. His labs were notable for normal TSH and normal troponin. I have reviewed his transthoracic echocardiogram which shows no significant valvular disease. There is significant LVH with septal hypertrophy and there are no regional wall motion abnormalities. There is suggestion of an AST. He now presents for pacemaker insertion. DESCRIPTION OF PROCEDURE: The patient was brought to the cardiac electrophysiology laboratory, prepared in standard fashion. Continuous blood pressure, heart rate, electrocardiogram and pulse oximetry monitored throughout the procedure. The area over the left chest was anesthetized with local injection of 2% lidocaine. A #10 blade was used to make a 3-cm incision in the deltopectoral groove. Careful blunt dissection and electrocautery performed, we identified the pectoralis fascia and a pocket was made for the device. Percutaneous wire was advanced by left axillary vein through the right atrium. Introducer sheath was advanced over the first guidewire and active fixation pacing lead was then advanced under fluoroscopic guidance to the intraventricular septum where appropriate pacing and sensing thresholds were obtained. We then turned our attention to the atrial lead. Introducer sheath was advanced over the second guidewire and active fixation pacing lead was advanced under fluoroscopic guidance through the right atrial appendage, appropriate pacing and sensing thresholds were obtained. Individual silk ties were used to secure the introducer sheath to the underlying fascia. The pocket was irrigated liberally with antibiotic solution and secured to the underlying fascia with 0 silk stitches. Leads were connected to the pacemaker which was placed into the pocket and secured to the underlying fascia with 0 silk stitch. Deep subcutaneous tissue was closed with interrupted stitches of 2-0 Vicryl. Superficial subcutaneous tissue was closed with interrupted stitches of 3-0 Vicryl. Subcuticular tissue was closed with a running stitch of 4-0 Monocryl. Dermabond was applied to incision as well as a pressure dressing. The patient tolerated the procedure well. There were no complications. He was transferred to home in stable condition. FINDINGS: 1. The device is [employer], serial #[id number]. 2. The atrial lead is a 5076 52 cm serial #[id number]. 3. The ventricular lead is a 5076, it is 58 cm, serial #[id number]. 4. Pacing and sensing analyzer measurement: Sensed atrial electrogram is 2.8 mV, impedance 542 ohms. Capillary threshold is 0.7 v. Sensed ventricular electrogram is 24.8 mV. Impedance is 988 ohms. Capillary threshold is 0.8 v. CONCLUSION: Successful dual-chamber pacemaker via axillary vein access. PLAN: Routine followup. Lexx Mckeon MD cc: Pj Martins MD
[2018-12-24 06:12] LABS: BASO % 0.5 % (0.0-2.0); EOS % 0.3 % (0.0-4.0); HEMOGLOBIN 13.7 g/dL (12.0-18.0); LYMPH # 1.5 K/uL (1.0-4.3); MEAN CELL VOLUME 86.1 fL (80.0-94.0); MEAN CORPUSCULAR HEMOGLOBIN 30.5 pg (27.0-31.0); MEAN CORPUSCULAR HGB CONC 35.4 g/dL (33.0-37.0); MEAN PLATELET VOLUME 8.2 fL (7.2-11.7); MONO # 0.7 K/uL (0.0-0.8); MONO % 7.5 % (0.0-10.0); NEUT # 6.9 K/uL (1.8-7.0); NEUT % 75.7 % (50.0-75.0); RBC 4.49 Mil/uL (4.40-5.90); RED CELL DISTRIBUTION WIDTH 13.5 % (11.5-14.5); WHITE BLOOD COUNT 9.1 K/uL (4.8-10.8)
[2018-12-24 06:14] LABS: IRON 27 ug/dL (49-181)
[2018-12-24 06:18] LABS: ALB/GLOB RATIO 1.5 (1.0-2.1); ALBUMIN 4.3 g/dL (3.5-5.0); ALT/SGPT 26 U/L (21-72); AST/SGOT 28 U/L (17-59); BLOOD UREA NITROGEN 20 mg/dL (9-20); CALCIUM 9.2 mg/dl (8.6-10.4); GFR NON-AFRICAN AMERICAN > 60
[2018-12-24 06:23] LABS: % IRON SATURATION 9 (20-55); TOTAL IRON BINDING CAPACITY 307 ug/dL (250-450)
--- NOTE | 2018-12-24 08:03 | CP.PCM.PN ---
Subjective - Date & Time of Evaluation Date of Evaluation: 12/24/18 Time of Evaluation: 08:03 - Subjective Subjective: Progress note for Dr. Johnston. Patient seen and examined at bedside. Patient states he feels well. Denies dizziness, lightheadedness, generalized weakness, SOB, chest pain, nausea, vomiting, abdominal pain and extremity pain. Objective - Vital Signs/Intake and Output Vital Signs (last 24 hours): Temp Pulse Resp BP Pulse Ox 98.1 F 72 19 116/69 96 12/24/18 04:00 12/24/18 04:00 12/24/18 04:00 12/24/18 04:00 12/24/18 04:00 Intake and Output: 12/24/18 12/24/18 06:59 18:59 Intake Total 540 Output Total 400 Balance 140 - Medications Medications: Current Medications Enoxaparin Sodium (Lovenox) 40 mg SC DAILY [facility] Last Admin: 12/23/18 18:28 Dose: 40 mg Pantoprazole Sodium (Protonix Ec Tab) 40 mg PO DAILY [facility] Last Admin: 12/23/18 13:19 Dose: 40 mg - Labs Labs: 12/24/18 05:56 12/24/18 05:56 PT 13.5 SECONDS (9.7-12.2) H 12/22/18 13:44 INR 1.2 12/22/18 13:44 APTT 32.0 SECONDS (21-34) 12/22/18 13:44 - Constitutional Appears: Non-toxic, No Acute Distress - Head Exam Head Exam: ATRAUMATIC, NORMOCEPHALIC - Eye Exam Eye Exam: EOMI, Normal appearance, PERRL - ENT Exam ENT Exam: Mucous Membranes Moist - Neck Exam Neck Exam: Full ROM, Normal Inspection - Respiratory Exam Respiratory Exam: Clear to Ausculation Bilateral, NORMAL BREATHING PATTERN. absent: Rales, Rhonchi, Wheezes - Cardiovascular Exam Cardiovascular Exam: REGULAR RHYTHM, +S1, +S2 Additional comments: PPM left chest. Dressing c/d/i - GI/Abdominal Exam GI & Abdominal Exam: Soft. absent: Distended, Firm, Guarding, Rigid, Tenderness, Rebound - Extremities Exam Extremities Exam: Full ROM, Normal Capillary Refill, Normal Inspection. absent: Pedal Edema, Tenderness - Neurological Exam Neurological Exam: Alert, Awake, CN II-XII Intact, Oriented x3 Neuro motor strength exam: Left Upper Extremity: 5, Right Upper Extremity: 5, Left Lower Extremity: 5, Right Lower Extremity: 5 - Psychiatric Exam Psychiatric exam: Normal Affect, Normal Mood - Skin Skin Exam: Dry, Intact, Normal Color, Warm Assessment and Plan - Assessment and Plan (Free Text) Plan: 43 year old male with history of hypertension admitted for syncopal episode, found to be in third degree heart block, had PPM placement earlier today. Plan: Third degree heart block, improving EKG SR [place] A waves present on initial EKG Patient initially had Right IJ pacer placement in ICU on admission Patient had 2 episodes of ventricular pause - in the ED and during Right IJ pacer placement. Patient was hypotensive and received Dopamine on the day of admission Dr. Mckeon placed PPM today Currently paced on monitor with HR in 60s. TSH 2.06 RPR nonreactive Lyme titer, iron, studies, ferritin pending Follow up ECHO report Syncope, Fall CT head: no acute findings. CXR: borderline cardiomegaly, mild venous congestion, bilateral hilar prominence. History of hypertension On Lisinopril and HCTZ at home Hold given low BP History of colon cancer Status post colon surgery Patient will need to follow up with GI and Heme/Onc on discharge. Prophylaxis Lovenox 40mg SC daily Protonix 40mg PO daily Heart healthy diet Dispo: IVY as recomended by Dr. Mckeon. Case discussed with Dr. Johnston
[2018-12-24] MEDS ORDERED: Potassium Chloride 20 mEq ER Tab PO ONE (08:04)
[2018-12-24] MEDS: Enoxaparin 40 mg Syringe SC SCH (09:35)
[2018-12-24] MEDS: Pantoprazole 40 mg EC Tab PO SCH (09:35)
[2018-12-24 10:22] VITALS: PULSE 61
--- NOTE | 2018-12-24 12:43 | CP.PCM.DIS ---
Provider - Provider Date of Admission: 12/22/18 14:06 Attending physician: Suhas Johnston Jr, MD Consults: 12/22/18 14:09 Cardiology Consult Stat Comment: Consulting Provider: Lexx Mckeon Consulting Physician: Lexx Mckeon Reason for Consult: 3rd degree heart block 12/23/18 00:08 Nursing Referral for Palliative Care Routine Comment: Physician Instructions: Reason For Exam: Score of 5 Time Spent in preparation of Discharge (in minutes): 35 Diagnosis - Discharge Diagnosis (1) Heart block AV third degree Status: Acute Hospital Course - Lab Results Lab Results: Micro Results 12/22/18 16:36 Nose MRSA Culture (Admit) - Final MRSA NOT DETECTED Most Recent Lab Values WBC 9.1 K/uL (4.8-10.8) 12/24/18 05:56 RBC 4.49 Mil/uL (4.40-5.90) 12/24/18 05:56 Hgb 13.7 g/dL (12.0-18.0) 12/24/18 05:56 Hct 38.7 % (35.0-51.0) 12/24/18 05:56 MCV 86.1 fL (80.0-94.0) 12/24/18 05:56 MCH 30.5 pg (27.0-31.0) 12/24/18 05:56 MCHC 35.4 g/dL (33.0-37.0) 12/24/18 05:56 RDW 13.5 % (11.5-14.5) 12/24/18 05:56 Plt Count 191 K/uL (130-400) 12/24/18 05:56 MPV 8.2 fL (7.2-11.7) 12/24/18 05:56 Neut % (Auto) 75.7 % (50.0-75.0) H 12/24/18 05:56 Lymph % (Auto) 16.0 % (20.0-40.0) L 12/24/18 05:56 [place] % (Auto) 7.5 % (0.0-10.0) 12/24/18 05:56 Eos % (Auto) 0.3 % (0.0-4.0) 12/24/18 05:56 Baso % (Auto) 0.5 % (0.0-2.0) 12/24/18 05:56 Neut # (Auto) 6.9 K/uL (1.8-7.0) 12/24/18 05:56 Lymph # (Auto) 1.5 K/uL (1.0-4.3) 12/24/18 05:56 [place] # (Auto) 0.7 K/uL (0.0-0.8) 12/24/18 05:56 Eos # (Auto) 0.0 K/uL (0.0-0.7) 12/24/18 05:56 Baso # (Auto) 0.0 K/uL (0.0-0.2) 12/24/18 05:56 Neutrophils % (Manual) 81 % (50-75) H 12/23/18 06:31 Band Neutrophils % 1 % (0-2) 12/23/18 06:31 Lymphocytes % (Manual) 9 % (20-40) L 12/23/18 06:31 Reactive Lymphs % 2 % (0-0) H 12/23/18 06:31 Monocytes % (Manual) 7 % (0-10) 12/23/18 06:31 Platelet Estimate Normal (NORMAL) 12/23/18 06:31 Large Platelets Present 12/23/18 06:31 Anisocytosis (manual) Slight 12/23/18 06:31 PT 13.5 SECONDS (9.7-12.2) H 12/22/18 13:44 INR 1.2 12/22/18 13:44 APTT 32.0 SECONDS (21-34) 12/22/18 13:44 D-Dimer, Quantitative 414 ng/mlDDU (0-243) H 12/22/18 14:52 Sodium 138 mmol/L (132-148) 12/24/18 05:56 Potassium 3.3 mmol/L (3.6-5.2) L 12/24/18 05:56 Chloride 103 mmol/L (98-107) 12/24/18 05:56 Carbon Dioxide 27 mmol/L (22-30) 12/24/18 05:56 Anion Gap 12 (10-20) 12/24/18 05:56 BUN 20 mg/dL (9-20) 12/24/18 05:56 Creatinine 1.0 mg/dL (0.8-1.5) 12/24/18 05:56 Est GFR ( Amer) > 60 12/24/18 05:56 Est GFR (Non-Af Amer) > 60 12/24/18 05:56 POC Glucose (mg/dL) 132 mg/dL (65-110) H 12/22/18 13:28 Random Glucose 88 mg/dL (75-110) 12/24/18 05:56 Calcium 9.2 mg/dl (8.6-10.4) 12/24/18 05:56 Phosphorus 1.9 mg/dL (2.5-4.5) L 12/24/18 05:56 Magnesium 2.2 mg/dL (1.6-2.3) 12/24/18 05:56 Iron 27 ug/dL (49-181) L 12/24/18 05:56 TIBC 307 ug/dL (250-450) 12/24/18 05:56 % Saturation 9 (20-55) L 12/24/18 05:56 Ferritin 297.0 ng/mL 12/24/18 05:56 Total Bilirubin 0.8 mg/dL (0.2-1.3) 12/24/18 05:56 AST 28 U/L (17-59) 12/24/18 05:56 ALT 26 U/L (21-72) 12/24/18 05:56 Alkaline Phosphatase 57 U/L (38-126) 12/24/18 05:56 Troponin I 0.0210 ng/mL (0.00-0.120) 12/22/18 13:44 NT-Pro-B Natriuret Pep 286 pg/mL (0-450) 12/22/18 13:44 Total Protein 7.2 g/dL (6.3-8.3) 12/24/18 05:56 Albumin 4.3 g/dL (3.5-5.0) 12/24/18 05:56 Globulin 2.9 gm/dL (2.2-3.9) 12/24/18 05:56 Albumin/Globulin Ratio 1.5 (1.0-2.1) 12/24/18 05:56 TSH 3rd Generation 2.06 mIU/L (0.46-4.68) 12/22/18 13:44 Urine Color Yellow (YELLOW) 12/22/18 19:17 Urine Clarity Clear (Clear) 12/22/18 19:17 Urine pH 6.0 (5.0-8.0) 12/22/18 19:17 Ur Specific [place] 1.012 (1.003-1.030) 12/22/18 19:17 Urine Protein Negative mg/dL (NEGATIVE) 12/22/18 19:17 Urine Glucose (UA) Normal mg/dL (Normal) 12/22/18 19:17 Urine Ketones Trace mg/dL (NEGATIVE) 12/22/18 19:17 Urine Blood Negative (NEGATIVE) 12/22/18 19:17 Urine Nitrate Negative (NEGATIVE) 12/22/18 19:17 Urine Bilirubin Negative (NEGATIVE) 12/22/18 19:17 Urine Urobilinogen Normal mg/dL (0.2-1.0) 12/22/18 19:17 Ur Leukocyte Esterase Neg [place]/uL (Negative) 12/22/18 19:17 Urine WBC (Auto) 1 /hpf (0-5) 12/22/18 19:17 Urine RBC (Auto) < 1 /hpf (0-3) 12/22/18 19:17 Hyaline Casts 3-5 /lpf (0-2) H 12/22/18 19:17 Urine Opiates Screen Negative (NEGATIVE) 12/22/18 19:17 Urine Methadone Screen Negative (NEGATIVE) 12/22/18 19:17 Ur Barbiturates Screen Negative (NEGATIVE) 12/22/18 19:17 Ur Phencyclidine Scrn Negative (NEGATIVE) 12/22/18 19:17 Ur Amphetamines Screen Negative (NEGATIVE) 12/22/18 19:17 U Benzodiazepines Scrn Negative (NEGATIVE) 12/22/18 19:17 U Oth Cocaine Metabols Negative (NEGATIVE) 12/22/18 19:17 U Cannabinoids Screen Negative (NEGATIVE) 12/22/18 19:17 Alcohol, Quantitative < 10 mg/dl (0-10) 12/23/18 04:00 RPR Nonreactive (NONREACTIVE) 12/22/18 13:53 - Hospital Course Hospital Course: On admission: This is a 43 year old male with PMHx of hypertension and colon cancer who presented to the ED with acute onset lightheadedness, dizziness, and syncope. Patient was symptomatic during work, he works in a warehouse. Bystanders noted his LOC and syncope and EMS was called. Patient found to be in 3rd degree heart block, transcutaneous pacer placed in ICU. Plan for PPM 12/23/18. Hospital Course: 43 year old male with history of hypertension admitted for syncopal episode, found to be in third degree heart block, had PPM placement earlier today. Plan: Third degree heart block, improving EKG SR [place] A waves present on initial EKG Patient initially had Right IJ pacer placement in ICU on admission Patient had 2 episodes of ventricular pause - in the ED and during Right IJ pacer placement. Patient was hypotensive and received Dopamine on the day of admission Dr. Mckeon placed PPM today Currently paced on monitor with HR in 60s. TSH 2.06 RPR nonreactive Lyme titer, iron, studies, ferritin pending Follow up ECHO report Syncope, Fall CT head: no acute findings. CXR: borderline cardiomegaly, mild venous congestion, bilateral hilar prominence. History of hypertension On Lisinopril and HCTZ at home Hold given low BP History of colon cancer Status post colon surgery Patient will need to follow up with GI and Heme/Onc on discharge. Prophylaxis Lovenox 40mg SC daily Protonix 40mg PO daily Heart healthy diet Dispo: IVY as recomended by Dr. Mckeon, as TTE suggested ASD. Patient signed out against medical advice. Risks of leaving without complete work up were reviewed with patient. He decided to leave AMA in spite of this. Patient is AOx3 and makes his own medical decisions. Patient stated he was from [place] and would make an appointment with [facility] close to where he lives. Patient was given Dr. Mckeon's office number and instructed to follow up, and to call in case of any problems with the pacemaker. 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 Mckeon for more information or in the case of any complications. Discharge Exam - Head Exam Head Exam: ATRAUMATIC, NORMOCEPHALIC Discharge Plan - Follow Up Plan Condition: GUARDED Disposition: HOME/ ROUTINE
[2018-12-24 13:08] VITALS: BP 138/70; RESP 18; TEMP 98.6; O2SAT 98
--- NOTE | 2018-12-24 14:29 | CARD ---
APPROVED REPORT Date of service: 12/23/2018 EXAM: Two-dimensional and M-mode echocardiogram with Doppler and color Doppler. Other Information Quality : GoodRhythm : INDICATION Syncope EVALUATE HEARTBLOCK 2D DIMENSIONS IVSd1.2 (0.7-1.1cm)LVDd3.7 (3.9-5.9cm) LVOT Diameter2.1 (1.8-2.4cm)PWd1.2 (0.7-1.1cm) LA Svumvi56 (18-58mL)LVDs2.8 (2.5-4.0cm) FS (%) 23.5 %LVEF (%)47.9 (>50%) LVEF (Reinoso's)61.68 % M-Mode DIMENSIONS Left Atrium (MM)3.54 (2.5-4.0cm)Aortic Root3.13 (2.2-3.7cm) Aortic Cusp Exc.1.69 (1.5-2.0cm) Mitral Valve MV E Ydwxtqbj62.4cm/sMV A Lfqedyst71.3cm/sE/A ratio2.3 TDI Lateral E' Peak V6.29cm/sMedial E' Peak V5.96cm/sE/Lateral E'11.2 E/Medial E'11.8 Pulmonary Valve PV Peak Unvcicgh92.7cm/sPV Peak Grad.3mmHg Tricuspid Valve TR Peak [id number]/sTR Peak Gr.[id number] LEFT VENTRICLE The left ventricle is normal size. There is normal left ventricular wall thickness. The left ventricular function is normal. The left ventricular ejection fraction is within the normal range. There is normal LV segmental wall motion. The left ventricular diastolic function is normal. RIGHT VENTRICLE The right ventricle is normal size. ATRIA The left atrium size is normal. The right atrium size is normal. AORTIC VALVE The aortic valve is normal in structure. MITRAL VALVE Mitral regurgitation is trace to mild. TRICUSPID VALVE There is mild tricuspid regurgitation. <Conclusion> Normal LV Systolic function. Normal chamber szie. Trace to mild MR. Mild TR.
--- NOTE | 2018-12-24 23:22 | CP.PCM.PN ---
Subjective - Date & Time of Evaluation Date of Evaluation: 12/23/18 Time of Evaluation: 08:30 - Subjective Subjective: Patient on TVP No additional events noted Patient dependent uoon TVP For PPM today with Dr. Mckeon ECHO pending Objective - Vital Signs/Intake and Output Vital Signs (last 24 hours): Temp Pulse Resp BP Pulse Ox 98.6 F 61 18 138/70 98 12/24/18 11:30 12/24/18 11:30 12/24/18 11:30 12/24/18 11:30 12/24/18 08:00 Intake and Output: 12/24/18 12/25/18 18:59 06:59 Intake Total 250 Balance 250 - Labs Labs: 12/24/18 05:56 12/24/18 05:56 PT 13.5 SECONDS (9.7-12.2) H 12/22/18 13:44 INR 1.2 12/22/18 13:44 APTT 32.0 SECONDS (21-34) 12/22/18 13:44
--- NOTE | 2018-12-26 21:18 | CARD ---
APPROVED REPORT Date of service: 12/22/2018 EKG Measurement Heart [id number] <Conclusion> Sinus bradycardia with 1st degree AV block Right bundle branch block Abnormal ECG
== END 2018-12-24 12:25 | disposition left against medical advice (07) | DRG 258 ==
LOC: C.ER 13:18 → C.9E 14:06 → C.9I 14:21
PROVIDERS: ADMIT Internal Medicine; ATTEND Internal Medicine
PROC: 02HV33Z Insertion of Infusion Device into Superior Vena Cava, Percutaneous Approach (ICD-10-PCS; 2018-12-22)
PROC: 0JH606Z Insertion of Pacemaker, Dual Chamber into Chest Subcutaneous Tissue and Fascia, Open Approach (ICD-10-PCS; principal; 2018-12-23)
DX: I44.2 Atrioventricular block, complete (principal); I46.9 Cardiac arrest, cause unspecified; R55 Syncope and collapse; I10 Essential (primary) hypertension; Z85.038 Personal history of other malignant neoplasm of large intestine; S00.01XA Abrasion of scalp, initial encounter; W18.30XA Fall on same level, unspecified, initial encounter; E87.6 Hypokalemia; Z51.5 Encounter for palliative care